=== PATIENT | female | born 1965 | race Caucasian/White ===

== ENCOUNTER 2018-12-03 09:07 | Emergency (ER) | payer BC, MEDICARE ==
[2018-12-03] MEDS ORDERED: predniSONE TAB* 20 MG PO ONE (09:39)
[2018-12-03] MEDS ORDERED: oxyCODONE TAB* 5 MG TAB PO ONE (09:39)
[2018-12-03] MEDS ORDERED: Lidocaine PATCH 5%* 1 PATCH TRANSDERM ONE (09:39)
--- NOTE | 2018-12-03 10:00 | ED ---
Lower Extremity - HPI Summary HPI Summary: Pt is a 53 y/o F presenting to the ED with a chief complaint of LLE pain. She states she has had pain related to her neuropathy over the past two weeks that is usually aggravated by weight bearing, but the pain worsened last night to the point where she could not move. She reports subjective fever and chills associated with the pain. The pain shoots through her L hip and L lower back. Pt denies any diaphoresis, erythema of eyes, sore throat, CP, SOB, cough, abdominal pain, N/V, dysuria, hematuria, edema, rash, or dizziness. - History of Current Complaint Chief Complaint: EDExtremityLower Stated Complaint: PAIN IN HIP AND LEG PER PT Time Seen by Provider: 12/03/18 09:20 Hx Obtained From: Patient Mechanism Of Injury: Unknown Onset of Pain: Days Onset/Duration: Still Present Severity Initially: Moderate Severity Currently: Severe Pain Intensity: 10 Pain Scale Used: 0-10 Numeric Timing: Constant, Lasting Weeks Location: Is Diffuse - LLE Character Of Pain: Sharp Associated Signs And Symptoms: Negative: Swelling Aggravating Factor(s): Weight Bearing Alleviating Factor(s): Nothing Able to Bear Weight: Yes - with trouble - Allergies/Home Medications Allergies/Adverse Reactions: Allergies Allergy/AdvReac Type Severity Reaction Status Date / Time acetaminophen [From Vicodin] Allergy Vomiting Verified 12/03/18 09:15 aspirin Allergy Swelling Verified 12/03/18 09:15 codeine Allergy Vomiting Verified 12/03/18 09:15 hydrocodone [From Vicodin] Allergy Vomiting Verified 12/03/18 09:15 quetiapine [From Seroquel] Allergy Swelling Verified 12/03/18 09:15 tetracycline Allergy Vomiting Verified 12/03/18 09:15 Home Medications: Home Medications ARIPiprazole TAB* [Abilify TAB*] 2 mg PO QAM 12/03/18 [History Confirmed ] Atorvastatin* [Lipitor*] 20 mg PO DAILY 12/03/18 [History Confirmed 12/03/18] Cyclobenzaprine TAB* [Flexeril 10 MG TAB*] 10 mg PO Q6HR PRN 12/03/18 [History Confirmed 12/03/18] Desmopressin Acetate [Ddavp] 0.1 mg PO BEDTIME 12/03/18 [History Confirmed 12/03] Esomeprazole(NF) [NEXium(NF)] 20 mg PO BID 12/03/18 [History Confirmed 12/03/18] Gabapentin CAP(*) [Neurontin 300 CAP(*)] 300 mg PO TID 12/03/18 [History Confirmed 12/03/18] Losartan TAB* [Cozaar TAB*] 50 mg PO DAILY 12/03/18 [History Confirmed 12/03/18] OXcarbazepine TAB(*) [Trileptal 300 mg TAB(*)] 300 mg PO QAM 12/03/18 [History Confirmed 12/03/18] SitaGLIPtin (NF) [Januvia (NF)] 100 mg PO BEDTIME 12/03/18 [History Confirmed ] hydrOXYzine HCL TAB* [Atarax TAB 50 MG *] 50 mg PO BID 12/03/18 [History Confirmed 12/03/18] traZODone TAB* [Desyrel TAB*] 100 mg PO BEDTIME 12/03/18 [History Confirmed 09/15] PMH/Surg Hx/FS Hx/Imm Hx Previously Healthy: Yes Endocrine/Hematology History: Reports: Hx Diabetes Cardiovascular History: Reports: Hx Hypercholesterolemia Denies: Hx Hypertension, Hx Myocardial Infarction Respiratory History: Reports: Hx Chronic Obstructive Pulmonary Disease (COPD) GI History: Reports: Hx Gastroesophageal Reflux Disease Denies: Hx Crohn's Disease, Hx Diverticulosis, Hx Irritable Bowel, Hx Obstructive Bowel, Hx Ulcer History: Reports: Hx Chronic Renal Failure - stage IV Denies: Hx Dialysis, Hx Kidney Stones Musculoskeletal History: Reports: Other Musculoskeletal History - R FT SURG Denies: Hx Arthritis, Hx Back Problems Neurological History: Reports: Other Neuro Impairments/Disorders - SCIATICA Denies: Hx Dementia, Hx Seizures Psychiatric History: Reports: Hx Depression, Hx Bipolar Disorder - Surgical History Surgery Procedure, Year, and Place: R FOOT SURG, 2013 Hx Anesthesia Reactions: No - Immunization History Date of Tetanus Vaccine: UNSURE Date of Influenza Vaccine: UNSURE Infectious Disease History: No Infectious Disease History: Denies: Traveled Outside the [place] in Last 30 Days - Family History Known Family History: Positive: Diabetes, Other - Depression - Social History Alcohol Use: Occasionally Hx Substance Use: Yes Substance Use Type: Reports: Marijuana Substance Use Comment - Amount & Last Used: medicinal Hx Tobacco Use: Yes Smoking Status (MU): Former Smoker Type: Cigarettes Review of Systems Positive: Fever, Chills. Negative: Skin Diaphoresis Negative: Erythema Negative: Sore Throat Negative: Chest Pain Negative: Shortness Of Breath, Cough Negative: Abdominal Pain, Vomiting, Nausea Negative: dysuria, hematuria Positive: Myalgia. Negative: Edema Negative: Rash Neurological: Negative - dizziness All Other Systems Reviewed And Are Negative: Yes Physical Exam - Summary Physical Exam Summary: Constitutional: Well-developed, Well-nourished, Alert. (-) Distressed Skin: Warm, Dry HENT: Normocephalic; Atraumatic Eyes: Conjunctiva normal Neck: Musculoskeletal ROM normal neck. (-) JVD, (-) Stridor, (-) Tracheal deviation Cardio: Rhythm regular, rate normal, Heart sounds normal; Intact distal pulses; The pedal pulses are 2+ and symmetric. Radial pulses are 2+ and symmetric. (-) Murmur Pulmonary/Chest wall: Effort normal. (-) Respiratory distress, (-) Wheezes, (-) Rales Abd: Soft, (-) tenderness, (-) Distension, (-) Guarding, (-) Rebound Musculoskeletal: (-) Edema, strength intact in the bilateral LE. Positive straight leg raise on the L Lymph: (-) Cervical adenopathy Neuro: Alert, Oriented x3 Psych: Mood and affect Normal Triage Information Reviewed: Yes Vital Signs On Initial Exam: Initial Vitals Temp Pulse Resp BP Pulse Ox 98.1 F 85 16 131/91 99 12/03/18 09:11 12/03/18 09:11 12/03/18 09:11 12/03/18 09:11 12/03/18 09:11 Vital Signs Reviewed: Yes Diagnostics - Vital Signs Vital Signs Temp Pulse Resp BP Pulse Ox 12/03/18 09:11 98.1 F 85 16 131/91 99 - Laboratory Lab Statement: Any lab studies that have been ordered have been reviewed, and results considered in the medical decision making process. Lower Extremity Course/Dx - Course Course Of Treatment: Pt is a 53 y/o F presenting to the ED with a chief complaint of LLE pain. She states she has had pain related to her neuropathy over the past two weeks, but the pain worsened last night to the point where she could not move. She reports subjective fever and chills associated with the pain. The pain radiates up through her L hip and L lower back. Pt denies any diaphoresis, erythema of eyes, sore throat, CP, SOB, cough, abdominal pain, N/V , dysuria, hematuria, edema, rash, or dizziness. On the pt's physical exam, she has bilateral LE strength intact. She also has a positive straight leg test on the L. The pt will d/c'ed with dx of sciatica pain, and instructed to f/u with her PCP within the next 2-3 days. She is stable and agreeable with this plan. - Diagnoses Provider Diagnoses: Sciatica Discharge ED - Sign-Out/Discharge Documenting (check all that apply): Patient Departure Patient Received Moderate/Deep Sedation with Procedure: No - Discharge Plan Condition: Stable Disposition: HOME Prescriptions: Lidocaine PATCH 5%* [Lidoderm 5% Patch*] 1 patch TRANSDERM DAILY #14 patch oxyCODONE TAB* [Roxycodone TAB 5 mg*] 10 mg PO Q6H PRN #20 tab MDD 8 PRN Reason: Pain - Severe predniSONE TAB* [Deltasone TAB*] 50 mg PO DAILY #5 tab Patient Education Materials: Sciatica (ED) Referrals: Camila Kim FLIGHT/TRANSPORT NURSE [Primary Care Provider] - Additional Instructions: Please follow up with your primary care provider within the next 2-3 days. Return to the emergency department with any new or worsening symptoms. - Attestation Statements Document Initiated by Scribe: Yes Documenting Scribe: Linda Davey Provider For Whom Scribe is Documenting (Include Credential): Anthony Cassidy MD. Scribe Attestation: Linda Westbrook, scribed for Anthony Cassidy MD. on 12/03/18 at 1021. Status of Scribe Document: Ready
[2018-12-03 10:22] VITALS: BP 121/84
[2018-12-03] MEDS ORDERED: Lidocaine Patch REMOVE* 1 NOTE MISC SCH (21:00)
== END 2018-12-03 10:22 | disposition home or self-care (01) ==
LOC: ED 09:07
DX: M54.30 Sciatica, unspecified side (principal); E78.00 Pure hypercholesterolemia, unspecified; J44.9 Chronic obstructive pulmonary disease, unspecified; K21.9 Gastro-esophageal reflux disease without esophagitis; E11.22 Type 2 diabetes mellitus with diabetic chronic kidney disease; N18.4 Chronic kidney disease, stage 4 (severe); Z87.891 Personal history of nicotine dependence; Z79.84 Long term (current) use of oral hypoglycemic drugs; Z79.891 Long term (current) use of opiate analgesic; Z79.899 Other long term (current) drug therapy; Z88.6 Allergy status to analgesic agent; Z88.5 Allergy status to narcotic agent; Z88.8 Allergy status to other drugs, medicaments and biological substances
CPT/HCPCS: 99283; A9270-GY; J7512